=== PATIENT | female | born 1975 | race Caucasian/White ===

== ENCOUNTER 2021-03-17 23:39 | Emergency (ER) | payer OTHER ==
[~2021-03-17 23:39] MED LIST: MULTI VITAMINS1 TAB PO; PYRIDIUM200 M1 PO; SEPTDS PO
== END 2021-03-18 05:43 | disposition left against medical advice (07) ==
LOC: ED 23:39
DX: S61.012A Laceration without foreign body of left thumb without damage to nail, initial encounter (principal); S61.411A Laceration without foreign body of right hand, initial encounter; Z88.0 Allergy status to penicillin; Z79.899 Other long term (current) drug therapy; X58.XXXA Exposure to other specified factors, initial encounter; Y93.89 Activity, other specified; Y92.89 Other specified places as the place of occurrence of the external cause; Y99.8 Other external cause status